=== PATIENT | male | born 1980 | race Caucasian/White ===

== ENCOUNTER 2023-10-03 13:06 | Outpatient (CLI) | payer BC ==
--- NOTE | 2023-10-03 15:56 | XRAY Report ---
PROCEDURE: Foot 1-2V RT INDICATIONS: FOOT PAIN, RIGHT TECHNIQUE: 2 views of the foot were acquired. COMPARISON: None. FINDINGS: Bones: No acute fractures or dislocations. No suspicious bony lesions. Soft tissues: No suspicious soft tissue calcification. IMPRESSION: No acute osseous abnormality. If symptoms persist or there is continued clinical concern, further amy luation with MRI or CT may be helpful. Reviewed by: Rene Rivera MD on 10/03/2023 3:55 PM PDT Approved by: Rene Rivera MD on 10/03/2023 3:55 PM PDT Station ID: [id number]
--- NOTE | 2023-10-03 15:56 | XRAY Report ---
PROCEDURE: Ankle 3+V RT INDICATIONS: ANKLE PAIN, RIGHT TECHNIQUE: 3 views of the ankle were acquired. COMPARISON: None. FINDINGS: Bones: No acute fractures or dislocations. Ankle mortise is normally aligned. No suspicious bony l esions. Soft tissues: No tibiotalar joint effusion. Achilles tendon appears normal. IMPRESSION: No acute osseous abnormality. If symptoms persist or there is continued clinical concern, further amy luation with MRI or CT may be helpful. Reviewed by: Rene Rivera MD on 10/03/2023 3:54 PM PDT Approved by: Rene Rivera MD on 10/03/2023 3:54 PM PDT Station ID: [id number]
== END 2023-10-03 23:59 | disposition home or self-care (01) ==
LOC: DI.N 13:06
PROVIDERS: ATTEND Family Medicine
DX: M25.571 Pain in right ankle and joints of right foot (principal); M79.671 Pain in right foot